=== PATIENT | male | born 1945 | race Caucasian/White ===

== ENCOUNTER 2018-01-22 01:57 | Outpatient (CLI) | payer MEDICARE, BC, SELFPAY ==
[2018-01-22 11:09] LABS: HGB 12.6 g/dL (13.5-17.5); Mean Corp. HGB Concentration 31.5 g/dL (32.0-36.0); Mean Corpuscular Hemoglobin 29.6 pg (27.0-33.0); Mean Corpuscular Volume 94.1 fL (80-95); Mean Platelet Volume 11.5 fL (8.0-11.0); Platelet Count 233 x1000/uL (130-400); RBC 4.25 m/cumm (4.50-6.00); RBC Distribution Width 15.8 % (11.8-14.1); White Blood Cell Count 8.52 k/cumm (4.4-10.8)
[2018-01-22 11:34] LABS: ALT 17 U/L (12-78); AST 23 U/L (15-37); Albumin 2.9 g/dL (3.4-5.0); Alkaline Phosphatase 53 U/L (46-116); Anion Gap 11.2 mmol/L (3-11); BUN 21 mg/dL (7-18); Bilirubin, Total 0.7 mg/dL (0.2-1.0); CO2 23.8 mmol/L (21.0-32.0); CREATININE 1.87 mg/dL (0.70-1.30); Calcium 8.7 mg/dL (8.5-10.1); Chloride 108 mmol/L (98-107); Cholesterol 116 mg/dL (50-200); Estimated GFR 35.77 (mL/min/1.73m2); Glucose 83 mg/dL (70-100); HDL Cholesterol 36 mg/dL (40-60); LDL CHOLESTEROL 61 mg/dL (<100); Potassium 4.4 mmol/L (3.5-5.1); Sodium 143 mmol/L (136-145); Total Protein 6.5 g/dL (6.4-8.2); Triglyceride 149 mg/dL (30-150)
[2018-01-22 12:16] LABS: Hemoglobin A1C 6.3 % (4.5-6.2)
== END 2018-01-22 02:17 ==
PROVIDERS: PCP Family Medicine; Visit Provider Family Medicine
DX: D64.9 Anemia, unspecified (principal); E11.9 Type 2 diabetes mellitus without complications; E87.6 Hypokalemia; I10 Essential (primary) hypertension; N28.9 Disorder of kidney and ureter, unspecified; Z13.220 Encounter for screening for lipoid disorders
CPT/HCPCS: 36415; 80053; 80061; 83721; 85027; 83036

== ENCOUNTER 2018-05-02 02:31 | Outpatient (CLI) | payer MEDICARE, BC, SELFPAY ==
[2018-05-02 11:41] LABS: HCT 41.1 % (40.0-50.0); HGB 13.6 g/dL (13.5-17.5); Mean Corp. HGB Concentration 33.1 g/dL (32.0-36.0); Mean Corpuscular Hemoglobin 31.5 pg (27.0-33.0); Mean Corpuscular Volume 95.1 fL (80-95); Platelet Count 214 x1000/uL (130-400); RBC 4.32 m/cumm (4.50-6.00); RBC Distribution Width 14.8 % (11.8-14.1); White Blood Cell Count 10.37 k/cumm (4.4-10.8)
[2018-05-02 12:16] LABS: Hemoglobin A1C 6.1 % (4.5-6.2)
[2018-05-02 12:22] LABS: ALT 39 U/L (12-78); AST 27 U/L (15-37); Alkaline Phosphatase 61 U/L (46-116); Anion Gap 9.7 mmol/L (3-11); BUN 23 mg/dL (7-18); Bilirubin, Total 0.5 mg/dL (0.2-1.0); CO2 26.3 mmol/L (21.0-32.0); Calcium 8.7 mg/dL (8.5-10.1); Chloride 106 mmol/L (98-107); Estimated GFR 37.27 (mL/min/1.73m2); Glucose 131 mg/dL (70-100); Potassium 4.3 mmol/L (3.5-5.1); Sodium 142 mmol/L (136-145); Total Protein 6.6 g/dL (6.4-8.2)
== END 2018-05-02 02:51 ==
PROVIDERS: PCP Family Medicine; Visit Provider Family Medicine
DX: E11.9 Type 2 diabetes mellitus without complications (principal); N18.9 Chronic kidney disease, unspecified
CPT/HCPCS: 36415; 80053; 85027; 83036

== ENCOUNTER 2018-10-15 01:55 | Outpatient (CLI) | payer MEDICARE, BC, SELFPAY ==
[2018-10-15 11:10] LABS: HCT 38.7 % (40.0-50.0); Mean Corp. HGB Concentration 33.6 g/dL (32.0-36.0); Mean Corpuscular Hemoglobin 32.4 pg (27.0-33.0); Mean Corpuscular Volume 96.5 fL (80-95); Mean Platelet Volume 10.7 fL (8.0-11.0); Platelet Count 243 x1000/uL (130-400); RBC 4.01 m/cumm (4.50-6.00); White Blood Cell Count 12.13 k/cumm (4.4-10.8)
[2018-10-15 11:33] LABS: ALT 33 U/L (12-78); AST 20 U/L (15-37); Albumin 2.9 g/dL (3.4-5.0); Alkaline Phosphatase 44 U/L (46-116); Anion Gap 12.8 mmol/L (3-11); BUN 33 mg/dL (7-18); Bilirubin, Total 0.5 mg/dL (0.2-1.0); CO2 23.2 mmol/L (21.0-32.0); CREATININE 1.92 mg/dL (0.70-1.30); Calcium 8.9 mg/dL (8.5-10.1); Chloride 107 mmol/L (98-107); Glucose 116 mg/dL (70-100); Potassium 4.5 mmol/L (3.5-5.1); Sodium 143 mmol/L (136-145); Total Protein 6.1 g/dL (6.4-8.2)
[2018-10-15 11:46] LABS: Calculated LDL 73; Cholesterol 132 mg/dL (50-200); HDL Cholesterol 37 mg/dL (40-60); Triglyceride 112 mg/dL (30-150)
[2018-10-15 12:12] LABS: Hemoglobin A1C 6.1 % (4.5-6.2)
== END 2018-10-15 02:15 ==
PROVIDERS: PCP Family Medicine; Visit Provider Family Medicine
DX: E11.9 Type 2 diabetes mellitus without complications (principal); N18.9 Chronic kidney disease, unspecified
CPT/HCPCS: 36415; 80053; 80061; 83721; 85027; 83036

== ENCOUNTER 2019-02-18 02:08 | Outpatient (CLI) | payer MEDICARE, BC, SELFPAY ==
[2019-02-18 10:40] LABS: Hemoglobin A1C 6.2 % (4.5-6.2)
[2019-02-18 10:45] LABS: ALT 23 U/L (16-63); AST 16 U/L (15-37); Alkaline Phosphatase 33 U/L (46-116); Anion Gap 8.9 mmol/L (3-11); BUN 39 mg/dL (7-18); Bilirubin, Total 0.5 mg/dL (0.2-1.0); CO2 27.1 mmol/L (21.0-32.0); CREATININE 2.03 mg/dL (0.70-1.30); Chloride 107 mmol/L (98-107); Estimated GFR 32.44 (mL/min/1.73m2); Glucose 137 mg/dL (70-100); Potassium 4.4 mmol/L (3.5-5.1); Sodium 143 mmol/L (136-145); Total Protein 6.4 g/dL (6.4-8.2)
== END 2019-02-18 02:28 ==
PROVIDERS: PCP Family Medicine; Visit Provider Family Medicine
DX: E11.9 Type 2 diabetes mellitus without complications (principal)
CPT/HCPCS: 36415; 80053; 83036

== ENCOUNTER → 2019-03-26 09:49 | Outpatient (BNVA) | payer MEDICARE, BC, SELFPAY | PROVIDERS: PCP Family Medicine; Referring Provider Family Medicine; Visit Provider Surgery | DX: L98.9 Disorder of the skin and subcutaneous tissue, unspecified (principal); R94.4 Abnormal results of kidney function studies | CPT/HCPCS: 99203; 99214 ==

== ENCOUNTER 2019-03-31 08:38 | Day surgery (SDC) | payer MEDICARE, BC, SELFPAY ==
[2019-03-31 09:00] VITALS: BP 173/63; PULSE 63; RESP 16; TEMP 36.9; O2SAT 99
[2019-03-31] MEDS: Lactated Ringers 1,000 ML 82 ML IV (09:30)
[2019-03-31] MEDS: Gabapentin 300 MG CAP PO (09:49)
[2019-03-31] MEDS: Acetaminophen 500 MG TAB 1000 MG PO (09:50)
[2019-03-31] MEDS: Bupivacaine 0.5% Pres-Free 30 ML VIAL (10:33)
--- NOTE | 2019-03-31 10:37 | SKI_PTH ---
PATIENT: GEORGIA ROSSI LOC: LM U#:[id number] AGE/SX: 74/M ROOM: RE03/31/[address]: Gloria Ashton : 1945 BED: DIS: 03/31/2019 SPEC #: [id number] RECD: 03/31/19 12:44 STATUS: LAURA REGoyo #: [id number] NICOLE: 03/31/19 10:[address]: Gloria Ashton DEPT: Surgical Specimen RECD BY: Carmen Vazquez ENTERED: 03/31/19 12:46 SP TYPE: LEMUEL JETER DR: Gautam Duran MD Tissues: 1 - SKIN BIOPSY(SHAVE/PUNCH) 2 - SKIN BIOPSY(SHAVE/PUNCH) 3 - SKIN BIOPSY(SHAVE/PUNCH) Procedures: SKIN LEVEL 4 Comments: [id number]
[2019-03-31] MEDS: Bacitracin 30 GM TUBE (10:54)
--- NOTE | 2019-03-31 10:59 | W.PM.DSUDISC ---
Discharge Plan Disposition Patient Disposition: HOME Condition: Good Discharge Details Reason For Visit: LESION ON PENIS Attending Provider: Gloria Ashton Primary Care Provider: Gautam Duran Home Meds and New Rx's Prescriptions: New tramadol 50 mg tablet 50 mg PO Q6H PRN (Reason: pain) Qty: 14 RF: 0 docusate sodium [Col-Rite] 100 mg capsule 100 mg PO BID Qty: 30 RF: 2 bacitracin zinc-polymyxin B 500-10,000 unit/gram ointment 1 applic TP QID Qty: 14 RF: 0 Continued triamcinolone acetonide 0.1 % cream 1 applic TP BID PRN (Reason: eczema) Qty: 60 RF: 2 flu vacc qs 2019-20 (6 mos up) 60 mcg (15 mcg x 4)/0.5 mL suspension 0.5 ml IM ONCE Qty: 1 RF: 0 furosemide [Lasix] 20 mg tablet 20 mg PO QAM Qty: 90 RF: 3 nystatin 100,000 unit/gram powder 1 applic TP BID Qty: 60 RF: 0 atorvastatin [Lipitor] 20 mg tablet 20 mg PO QPM Qty: 90 RF: 4 clopidogrel [Plavix] 75 mg tablet 75 mg PO DAILY Qty: 90 RF: 4 allopurinol 100 mg tablet 100 mg PO DAILY Qty: 90 RF: 4 trazodone 100 mg tablet 50 mg PO DAILY Qty: 45 RF: 1 Novolog Flexpen U-100 Insulin 100 unit/mL (3 mL) insulin pen See Rx Instructions .ROUTE .COMPLEX Qty: 15 RF: 11 fluoxetine 10 mg capsule 10 mg PO DAILY Qty: 30 RF: 5 metoprolol tartrate 50 mg tablet 50 mg PO TID Qty: 90 RF: 11 (DME) pen needle, diabetic [BD Ultra-Fine Sharon Pen Needle] 32 gauge x 5/32 needle 1 ea Miscellaneous Five times a day Qty: 500 RF: 4 (DME) Blood Glucose Test Strip 1 ea Miscellaneous QID 90 Days Qty: 400 RF: 4 (DME) lancets 26 gauge misc 1 ea Miscellaneous TID Qty: 300 RF: 4 Lantus Solostar U-100 Insulin 100 unit/mL (3 mL) insulin pen 36 unit subcut BID Qty: 45 RF: 5 pantoprazole [Protonix] 20 mg tablet,delayed release (DR/EC) 20 mg PO DAILY 90 Days Qty: 90 RF: 4 ferrous sulfate 325 MG tablet 325 mg PO DAILY RF: 0 Discharge Instructions Additional Instructions: Caring for Your Incision You will need to help care for your incision after surgery and certain medical procedures. To close an incision, your healthcare provider used stitches (sutures). Follow the tips on this sheet to help stop bleeding, speed healing, and prevent infection of your incision. Pain Control Use ice! Ice keeps the swelling down and swelling is what causes pain. Never apply ice directly to the skin. Wrap it in a towel or cloth. Apply ice 20 minutes on and 20 minutes off for pain control. Use as needed. Take tylenol 325 mg by mouth with food every 4 hours as needed for pain. Do not take tylenol if you have a history of heavy drinking , hepatits C or liver problems. Use narcotic pain medications for severe pain. These medications can make you very constipated. Types of incision closures ? Surgical stitches (sutures) are placed by sewing the edges of an incision together with surgical thread. Sutures are either absorbable or non-absorbable. Absorbable sutures break down in the body over time. Non-absorbable sutures need to be removed. ? Home care ? Always wash your hands before touching your incision. ? Keep the incision clean, dry, and out of water, keep the incision out of water. ? Do not to pick at the scabs. Scabs help protect the wound. ? You can take a shower in 24 hours and wash the incision with soap and water. Pat dry/don?t scrub. It?s OK to wash around the incision. But don?t spray water directly on it. ? Pat stitches dry if they get wet. Don't rub. ? Check the incision site daily for pain, redness, drainage, swelling, or separation of the incision edges. ? If there is a bandage (dressing) over the incision, change this every 24 hours as instructed by your provider. Using clean hands change the dressing as directed by your healthcare provider. Always wash your hands before changing your dressing. ? Make sure any clothing that touches the incision is loose-fitting. This will prevent rubbing. If the incision is on the head, keep your child from wearing caps or other head coverings. These may rub against the incision. ? Try to avoid from rough play, contact sports, or physical activities for two weeks. This can put you at risk of opening the incision. ? Make sure you avoid doing things that could cause dirt or sweat to get in or on the incision. As your incision heals, the skin may appear pink or red. It may also feel slightly bumpy or raised. This is called a healing ridge. Over time, the color should fade and the raised skin will become less noticeable. Care for specific closures : ? Sutures or hasmukh. Once you no longer need to keep these dry, clean the incision or wound daily, generally after the first 12-24 hours. because of where the incision is located, you need to change the dressing several times a day. Change the dressing if it becomes wet or soiled. First remove the bandage using clean hands. Then wash the area gently with soap and warm water. Use a wet cotton swab to loosen and remove any blood or crust that forms. After cleaning, put a thin layer of antibiotic ointment on- such as neosporin or bactitracin. Then put on a new bandage. Follow-up care Hasmukh or sutures generally need to be removed in 7-10 days. Be sure to return for suture or staple removal as directed. If dissolving stitches were used in your mouth, these will not need to be removed. They should fall out or dissolve on their own. If tape closures were used, remove them yourself when your healthcare provider tells you to if they have not fallen off on their own. When to seek medical care Call your healthcare provider right away if you have any of these: ? More pain, redness, swelling, bleeding, or foul-smelling discharge around the incision area ? Fever of 101?F (38.3?C) or higher, or as directed by your child's healthcare provider ? Shaking chills ? Vomiting or nausea that doesn?t go away ? Numbness, coldness, or tingling around the incision area, or changes in skin color ? Opening of the sutures or wound Stitches or hasmukh come apart or fall out or surgical tape falls off before 7 days, or as directed by your healthcare provider [facility] on Sunday to make appt w/ Dr. Ashton in 7-10 days. [phone] Stand Alone Forms: Rodriguez Clay (DSU) Activity:: change dressing when it becomes wet or soiled. Because of the location- it may need to be changed several times a day. Shower/Bathe:: 24 hours Diet:: As Tolerated Discharge Orders Discharge Orders: Discharge Order (Routine); Ordered 03/31/19 Ordered By: Gloria Ashton DS: Diagnosis Discharge Diagnosis (1) Penile lesion: Status: Acute
--- NOTE | 2019-03-31 11:12 | W.PM.OP ---
Date of service: 03/31/19 Time of Service: 11:13 Operative Note Operative Note DATE OF PROCEDURE: 03/31/19 PRE-OP DIAGNOSIS: penile lesion- possible carcinoma POST-OP DIAGNOSIS: same PROCEDURE: lesion excision SURGEON: Gloria Ashton ANESTHESIA: MAC ESTIMATED BLOOD LOSS: 3 PATHOLOGY: other Patient was transported to: same day Patient's condition: stable Procedure Description: dictate
[2019-03-31 11:27] VITALS: BP 127/66; PULSE 62; RESP 16; TEMP 36; O2SAT 96
--- NOTE | 2019-03-31 12:40 | ROE_ITS ---
DATE OF PROCEDURE: March 31, 2019 PREOPERATIVE DIAGNOSIS: Penile lesion of the penis, 1 cm, possible carcinoma. POSTOPERATIVE DIAGNOSIS: Same. PROCEDURE: Excision of lesion. SURGEON: Gloria Ashton D.O. ANESTHESIA: MAC ESTIMATED BLOOD LOSS: < 3 cc's CONDITION: The patient tolerated the procedure well without complication. HISTORY: Mr. Velez is a 74-year-old male seen at the request of his PCP regarding a penile lesion an d is here today for excision. The patient is in poor health status and would not tolerate any major surgery or surgical exploration. PROCEDURE: Emla cream was applied to the lesion in postop. When he comes back a dorsal penile block is done at the 2 and 10 o'clock positions using plain 0.25% Marcaine. The lesion was then infiltrat ed with [id number] cc's of plain 0.25% Marcaine. It is excised in total with about 2 mm margins and i s sent off to Pathology. Electrocautery was used to provide hemostasis. The incision is closed with #4-0 nylon in an interrupted fashion. Sterile compression dressing is applied. The patient tolerat ed the procedure well without complication and transferred to the recovery room in stable condition. He will follow-up with me in the office in a weeks' time. He was given instructions in wound care, activity and warning signs and a prescription for Tramadol and use Tylenol and ice. cc: Gautam Duran M.D.
== END 2019-03-31 12:37 | disposition home or self-care (01) ==
PROVIDERS: PCP Family Medicine; Visit Provider Surgery
PROC: (CPT 11621; principal; 2019-03-31 09:45)
DX: C60.9 Malignant neoplasm of penis, unspecified (principal); I50.9 Heart failure, unspecified; E11.22 Type 2 diabetes mellitus with diabetic chronic kidney disease; N18.9 Chronic kidney disease, unspecified
CPT/HCPCS: 11621; 88305

== ENCOUNTER 2019-04-10 01:24 | Outpatient (CLI) | payer MEDICARE, BC, SELFPAY ==
[2019-04-10 15:58] LABS: Anion Gap 11.5 mmol/L (3-11); BUN 26 mg/dL (7-18); CO2 24.5 mmol/L (21.0-32.0); CREATININE 2.02 mg/dL (0.70-1.30); Calcium 8.9 mg/dL (8.5-10.1); Chloride 106 mmol/L (98-107); Estimated GFR 32.54 (mL/min/1.73m2); Glucose 125 mg/dL (74-106); Potassium 4.4 mmol/L (3.5-5.1); Sodium 142 mmol/L (136-145)
== END 2019-04-10 01:44 ==
PROVIDERS: PCP Family Medicine; Visit Provider Family Medicine
DX: N28.9 Disorder of kidney and ureter, unspecified (principal); N48.9 Disorder of penis, unspecified
CPT/HCPCS: 36415; 80048

== ENCOUNTER 2019-05-01 02:08 | Outpatient (CLI) | payer MEDICARE, BC, SELFPAY ==
--- NOTE | 2019-05-01 13:02 | DI.US_ITS ---
EXAM: US SOFT TISS EXTREMITY/GROIN CLINICAL HISTORY: penile cancer. looking for enlarged lymph nodes,R59.1,GENERALIZED ENLARGED TECHNIQUE: Ultrasound performed using standard protocol. COMPARISON: Cardiac from 09/05/2017 FINDINGS: Ultrasound examination of the inguinal regions was performed. There are multiple visible lymph nodes , on the left the largest nodes measure about 28 millimeters in diameter and 33 millimeters in diamet er respectively. These are hyperechoic with poorly defined internal architecture and may be patholog ic. On the right, the largest nodes are about 35 millimeters in greatest diameter and about 27 millimeter s in greatest diameter. Again these have an abnormal internal architecture. This examination was reportedly obtained to evaluate the possibility of metastatic inguinal nodes and the findings as described are indeterminate but could represent metastatic disease. Correlation wit h CT recommended.
== END 2019-05-01 02:28 ==
PROVIDERS: PCP Family Medicine; Visit Provider Surgery
DX: C60.9 Malignant neoplasm of penis, unspecified (principal); R59.1 Generalized enlarged lymph nodes; Z87.891 Personal history of nicotine dependence
CPT/HCPCS: 76882

== ENCOUNTER 2019-05-19 00:55 | Outpatient (CLI) | payer MEDICARE, BC, SELFPAY ==
--- NOTE | 2019-05-18 16:04 | W.PM.HP.N ---
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 Risks: bleeding, infection,damage to vein/artery/nerve, need for more tissue. will be done under US guidance. (2) Smoker: Status: Acute (3) Anemia: Status: Acute (4) Cerebrovascular disease: Status: Acute (5) Chronic kidney disease, unspecified: Status: Acute (6) Sleep disturbances: Status: Acute (7) Essential hypertension: Status: Acute (8) Diabetes mellitus: Status: Acute (9) Acute coronary syndrome: Status: Active (10) Congestive heart failure: Status: Active (11) Peripheral arterial occlusive disease: Status: Active (12) Diverticular disease of colon: Status: Active History of Present Illness Consults Consult date: 05/19/19 Narrative: pt had a lesion at the base of the penis which did turnstile attendant to be a cancer. We did do a local incision only. Pt is not medically stable for any definative surgery- EF 20%, Cr runs around 2. we did the initial procedure under just local. He did heal up well from the excision. He did have an US done to look at lymph nodes- some of these were enlarged on the left. This may be reactive from recent sx or met dx, vs other. I do think he needs a bx, and we are planning on doing this today. Risk: bleeding/infection/scar/damage to great vessels, need for more tissue. He can't receive contrast for CT or MRI b/c of kidneys. He is a poor sx candidate for a complete LND or radical surgical procedure. I do'nt think he would tolerate any chemo, either. We will see if there is any tumor spread. If there is- than he will need a refer to oncology for consideration of treatment vs watchful waiting. again- he is a poor candidate for adjuvant chemo. we are doing left sided lymph node bx today no chest pain or SOB or URT illness. no changes in health status or meds and stable for procedure today. incision has healed up nicely. 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 Paternal Grandfather No problems noted. Maternal Grandmother No problems noted. Paternal Grandmother No problems noted. Social History Smoking/Tobacco Use Status: Former Tobacco Use Quit Date: 04/30/99 Alcohol Intake: former Drug use: Never Household members: spouse Do you need help understanding health information?: Rarely Pets and animals: Yes Pets and animals: cat(s) Sexually active: No Do you think of yourself as: straight/heterosexual Current gender identity: male What is your relationship status?: How often do you talk on the phone with friends or family?: once per week How often do you get together with friends or relatives?: decline to answer How often do you attend yazidi or muslim services?: decline to answer Do you belong to any clubs or organized social groups?: no Panel score (0-1 are the most socially isolated patients): 1 Duration: < 15 minutes/day Frequency: 1-2 times per week Marielos/Tenriism: Amish Special marielos needs: No Seatbelt use: always Helmet use: No Drive intox or ride w/intox commercial front load driver: No Do you feel safe at home: Yes Do you feel safe in your relationship?: Yes Meds Home Medications and Allergies Home Medications Medication Instructions Recorded Confirmed Type ferrous sulfate 325 mg PO DAILY 11/16/17 04/16/19 History triamcinolone acetonide 0.1 % 1 applic TP BID PRN #60 gm 04/24/18 04/16/19 Rx topical cream atorvastatin 20 mg tablet 20 mg PO QPM #90 tab 05/01/18 04/16/19 Rx clopidogrel 75 mg tablet 75 mg PO DAILY #90 tab-cap 05/17/18 04/16/19 Rx allopurinol 100 mg tablet 100 mg PO DAILY #90 tab-cap 05/29/18 04/16/19 Rx insulin aspart U-100 100 unit/mL See Rx Instructions .ROUTE 11/25/18 04/10/19 Rx (3 mL) subcutaneous pen .COMPLEX #15 syringe fluoxetine 10 mg capsule 10 mg PO DAILY #30 cap 11/27/18 04/16/19 Rx metoprolol tartrate 50 mg tablet 50 mg PO TID #90 tab 12/04/18 04/16/19 Rx pen needle, diabetic 32 gauge x #500 box 12/11/18 04/16/19 Rx 32 blood sugar diagnostic #400 strip 12/24/18 04/16/19 Rx lancets 26 gauge #300 ea 12/25/18 04/16/19 Rx insulin glargine 100 unit/mL (3 36 unit SUBCUT BID #45 ml 01/07/19 04/16/19 Rx mL) subcutaneous pen flu vacc qs 2019- (6 mos up) 60 0.5 ml IM ONCE #1 ml 02/24/19 03/31/19 Clinic mcg (15 mcg x 4)/0.5 mL IM susp furosemide 20 mg tablet 20 mg PO QAM #90 tab 02/24/19 04/16/19 Rx nystatin 100,000 unit/gram topical 1 applic TP BID #60 gm 02/24/19 04/16/19 Rx powder pantoprazole 20 mg tablet,delayed 20 mg PO DAILY 90 Days #90 tab-cap 02/26/19 04/16/19 Rx release tramadol 50 mg PO Q6H PRN #14 tab 03/31/19 04/16/19 Rx trazodone 100 mg tablet 50 mg PO DAILY #45 tab 05/19/19 Rx Allergies Allergy/AdvReac Type Severity Reaction Status Date / Time No Known Allergies Allergy Unverified 04/16/19 13:05 Exam Const General: cooperative, healthy appearing, comfortable, no acute distress, well developed and well groomed Nutritional Appearance: average body habitus and well nourished Orientation: alert, awake and oriented x3 HENMT Head: normal to inspection, normocephalic and atraumatic Ears: hearing grossly normal bilaterally and external ears normal General nose exam: external nose normal Face and sinus: normal facial exam and sinuses nontender Mouth: oral mucosae normal, lip normal, tongue normal and moist mucous membranes Teeth and gingiva: dentition normal Eyes General: appearance normal, both eyes and all related structures Conjunctivae: conjunctivae normal Sclera: sclerae normal Pupils: PERRL Neck Neck: normal visual inspection and full ROM Chest Chest: normal inspection of the chest Resp Effort & Inspection: normal respiratory effort, able to speak in complete sentences, no cough, no nasal flaring, not tachypneic and no use of accessory muscles Auscultation: clear to auscultation bilaterally, no rales, no rhonchi and no wheezes Cardio Jugular venous pressure: no JVD Rate: regular rate Rhythm: regular rhythm GI Inspection: normal to inspection, no edema and non-distended Palpation: soft, no masses, nontender and No ascites Auscultation: normal bowel sounds Skin General skin exam: no rashes or lesions noted Trauma: no lacerations or abrasions Neuro General: alert, oriented x3, oriented, gait normal, moves all extremities, no focal motor deficits and CN's II-XI intact bilaterally Cognition: normal cognition Speech: speech normal Gait: normal gait Motor: muscle tone normal throughout Extrem General: normal to inspection Other: b/i LE amputee Psych Appearance: grossly normal and well kempt Mental Status: mental status grossly normal Speech and Movement: speech and movement normal Affect: normal affect
--- NOTE | 2019-05-19 12:01 | DI.US_ITS ---
EXAM: US NEEDLE LOCAL OTHER WO RAD CLINICAL HISTORY: SQUAMOUS CELL CA WITH HIGH GRADE DYSPLASIA OF GROIN/PELVIS WITH ENLARGED TECHNIQUE: Ultrasound performed using standard protocol. COMPARISON: US SOFT TISS EXTREMITY/GROIN from 05/01/2019 FINDINGS: Ultrasound guidance was provided for biopsy performed by Dr. Ashton in the left inguinal region. Pl ease see Dr. Ashton's procedure note.
--- NOTE | 2019-05-19 13:10 | W.PM.DSUDISC ---
Discharge Plan Disposition Patient Disposition: HOME Condition: Good Discharge Details Reason For Visit: need kori lift, lymph node bx Attending Provider: Gloria Ashton Primary Care Provider: Gautam Duran Home Meds and New Rx's Prescriptions: No Action triamcinolone acetonide 0.1 % cream 1 applic TP BID PRN (Reason: eczema) Qty: 60 RF: 2 flu vacc qs 2019-20 (6 mos up) 60 mcg (15 mcg x 4)/0.5 mL suspension 0.5 ml IM ONCE Qty: 1 RF: 0 furosemide [Lasix] 20 mg tablet 20 mg PO QAM Qty: 90 RF: 3 nystatin 100,000 unit/gram powder 1 applic TP BID Qty: 60 RF: 0 atorvastatin [Lipitor] 20 mg tablet 20 mg PO QPM Qty: 90 RF: 4 clopidogrel [Plavix] 75 mg tablet 75 mg PO DAILY Qty: 90 RF: 4 allopurinol 100 mg tablet 100 mg PO DAILY Qty: 90 RF: 4 Novolog Flexpen U-100 Insulin 100 unit/mL (3 mL) insulin pen See Rx Instructions .ROUTE .COMPLEX Qty: 15 RF: 11 fluoxetine 10 mg capsule 10 mg PO DAILY Qty: 30 RF: 5 metoprolol tartrate 50 mg tablet 50 mg PO TID Qty: 90 RF: 11 (DME) pen needle, diabetic [BD Ultra-Fine Sharon Pen Needle] 32 gauge x 5/32 needle 1 ea Miscellaneous Five times a day Qty: 500 RF: 4 (DME) Blood Glucose Test Strip 1 ea Miscellaneous QID 90 Days Qty: 400 RF: 4 (DME) lancets 26 gauge misc 1 ea Miscellaneous TID Qty: 300 RF: 4 Lantus Solostar U-100 Insulin 100 unit/mL (3 mL) insulin pen 36 unit subcut BID Qty: 45 RF: 5 pantoprazole [Protonix] 20 mg tablet,delayed release (DR/EC) 20 mg PO DAILY 90 Days Qty: 90 RF: 4 trazodone 100 mg tablet 50 mg PO DAILY Qty: 45 RF: 3 ferrous sulfate 325 MG tablet 325 mg PO DAILY RF: 0 tramadol 50 mg tablet 50 mg PO Q6H PRN (Reason: pain) Qty: 14 RF: 0 Discharge Instructions Additional Instructions: -keep ice pack on for 24 hrs -tylenol as needed for pain -remove dressing in am -Surgery office will call to schedule PET scan -shower in 24 hrs -no heavy lifting x 24 hrs go to ER if any heavy bleeding Activity:: Activity as Tolerated Shower/Bathe:: 24 hours DS: Diagnosis Discharge Diagnosis (1) Primary squamous cell carcinoma of penis: Status: Acute (2) Smoker: Status: Acute (3) Anemia: Status: Acute (4) Cerebrovascular disease: Status: Acute (5) Chronic kidney disease, unspecified: Status: Acute (6) Sleep disturbances: Status: Acute (7) Essential hypertension: Status: Acute (8) Diabetes mellitus: Status: Acute (9) Acute coronary syndrome: Status: Active (10) Congestive heart failure: Status: Active (11) Peripheral arterial occlusive disease: Status: Active (12) Diverticular disease of colon: Status: Active
--- NOTE | 2019-05-19 13:37 | W.PM.OP ---
Date of service: 05/19/19 Time of Service: 13:38 Operative Note Operative Note DATE OF PROCEDURE: 05/19/19 PRE-OP DIAGNOSIS: Primary squamous cell cancer of the penis/enlarged lymph nodes POST-OP DIAGNOSIS: same PROCEDURE: Ultrasound was attempted but lymph node biopsy. We were unable to get any tissue today. SURGEON: Gloria Ashton ANESTHESIA: local ESTIMATED BLOOD LOSS: 3 PATHOLOGY: none sent Patient was transported to: other (d/c'ed home ) Patient's condition: stable Procedure Description: dictated
--- NOTE | 2019-05-19 15:06 | ROE_ITS ---
DATE OF PROCEDURE: May 19, 2019 PREOPERATIVE DIAGNOSIS: Squamous cell cancer of the penis with enlarged lymph nodes in the left groi n. POSTOPERATIVE DIAGNOSIS: Same. PROCEDURE: Attempted left inguinal lymph biopsy. SURGEON: Gloria Ashton D.O. ANESTHESIA: Local. ESTIMATED BLOOD LOSS: 3 cc's CONDITION: The patient tolerated the procedure well without complication. HISTORY: Mr. Velez is a 74-year-old male who had a small lesion at the base of his penis that was th ought to be a low-grade chronic infection. The lesion was excised and it did returned goods repairer to be a carcin servando. He is not a candidate for any major surgical procedures. He did have an ultrasound done for ly mph nodes, which did show some enlarged lymph nodes on the left side and he is here today for biopsy. Informed consent was obtained explaining risks and benefits of the procedure, including but not walter ited to bleeding, infection, scarring and need for more tissue and damage to vessels and nerves. PROCEDURE: The area is localized with ultrasound. It is prepped and draped in the usual sterile fas hion using a Betadine scrub solution. 10 cc's of 1% Lidocaine is used to anesthetize the skin and a small 25 gauge needle is used to localize the lymph node with the aid of ultrasound. A small knick i s made in the skin with a #11 blade. Christian-cut core needle biopsy is passed into the lymph nodes. Unf ortunately multiple passes at two different nodes are made and for some reason we weren't able to get any adequate tissue today. The procedure was abandoned. Pressure was held; there was no bleeding n oted. We will see if we can get the patient in for a PET scan for evaluation of the nodes. cc: Gautam Duran M.D.
== END 2019-05-19 01:15 | disposition home or self-care (01) ==
PROVIDERS: PCP Family Medicine; Visit Provider Surgery
DX: C60.9 Malignant neoplasm of penis, unspecified (principal); F17.210 Nicotine dependence, cigarettes, uncomplicated; D64.9 Anemia, unspecified; N18.9 Chronic kidney disease, unspecified; I12.9 Hypertensive chronic kidney disease with stage 1 through stage 4 chronic kidney disease, or unspecified chronic kidney disease; E11.9 Type 2 diabetes mellitus without complications; I50.9 Heart failure, unspecified; I25.10 Atherosclerotic heart disease of native coronary artery without angina pectoris
CPT/HCPCS: 38505; 76942; NC

== ENCOUNTER 2019-10-02 03:18 | Outpatient (CLI) | payer MEDICARE, BC, SELFPAY ==
[2019-10-02 08:46] LABS: Abs Immature Grans 0.34 k/cumm (0.0-0.09); Absolute Basophil Count 0.02 k/cumm (0.0-0.2); Absolute Eosinophil Count 0.02 k/cumm (0.0-0.7); Absolute Neutrophil Count 14.38 k/cumm (1.2-6.7); Basophils % 0.1; Eosinophils % 0.1; HCT 43.3 % (40.0-50.0); HGB 14.3 g/dL (13.5-17.5); Immature Grans % 1.9 %; Lymphocytes % 9.6; Mean Corpuscular Hemoglobin 31.1 pg (27.0-33.0); Mean Corpuscular Volume 94.1 fL (80-95); Mean Platelet Volume 10.9 fL (8.0-11.0); Monocytes % 7.1; Neutrophils % 81.2; Platelet Count 298 x1000/uL (130-400); RBC Distribution Width 14.9 % (11.8-14.1); White Blood Cell Count 17.71 k/cumm (4.4-10.8)
[2019-10-02 08:49] LABS: Absolute Monocyte Count 1.26 k/cumm (0.11-0.7)
[2019-10-02 09:02] LABS: ALT 21 U/L (16-63); AST 18 U/L (15-37); Albumin 3.3 g/dL (3.4-5.0); Alkaline Phosphatase 20 U/L (46-116); Anion Gap 6.2 mmol/L (3-11); BUN 39 mg/dL (7-18); Bilirubin, Total 0.6 mg/dL (0.2-1.0); CO2 24.8 mmol/L (21.0-32.0); CREATININE 1.92 mg/dL (0.70-1.30); Calcium 8.7 mg/dL (8.5-10.1); Chloride 106 mmol/L (98-107); Glucose 76 mg/dL (74-106); Potassium 4.8 mmol/L (3.5-5.1); Sodium 137 mmol/L (136-145); Total Protein 6.7 g/dL (6.4-8.2)
== END 2019-10-02 03:38 ==
PROVIDERS: PCP Family Medicine; Visit Provider Family Medicine
DX: E11.9 Type 2 diabetes mellitus without complications (principal); N18.9 Chronic kidney disease, unspecified
CPT/HCPCS: 36415; 80053; 85025

== ENCOUNTER 2020-06-04 02:18 | Outpatient (CLI) | payer MEDICARE, BC, SELFPAY ==
--- NOTE | 2020-06-04 13:12 | DI.RAD_ITS ---
EXAM: XR FINGER LT INDEX EXAM DATE/TIME: CLINICAL HISTORY: ? osteomyelitis - already lost r index,INFECTION,B99.9. TECHNIQUE: 2D digital imaging was performed. COMPARISON: None. FINDINGS: BONES: No acute fracture is present. No radiographic findings to suggest osteomyelitis. JOINTS: No dislocation is present. Degenerative changes are seen at the DIP joint of the left finger . SOFT TISSUE: Vascular calcifications are seen in the soft tissues. IMPRESSION: No radiographic evidence to suggest acute osteomyelitis. If there is continued concern, MRI or 3 pha se bone scan should be considered. DATA REPOSITORY: RADIATION DOSE DELIVERED:
== END 2020-06-04 02:19 ==
LOC: DI 02:18
PROVIDERS: PCP Family Medicine; Visit Provider Family Medicine
DX: L98.498 Non-pressure chronic ulcer of skin of other sites with other specified severity (principal); Z87.39 Personal history of other diseases of the musculoskeletal system and connective tissue
CPT/HCPCS: 73140

== ENCOUNTER 2020-06-04 12:47 | Outpatient (CLI) | payer MEDICARE, BC, SELFPAY ==
[2020-06-04 13:13] LABS: Abs Immature Grans 0.14 10^3/uL (0.0-0.06); Absolute Basophil Count 0.05 10^3/uL (0.0-0.2); Absolute Eosinophil Count 0.24 10^3/uL (0.0-0.7); Absolute Lymphocyte Count 1.58 10^3/uL (1.2-3.4); Absolute Monocyte Count 0.85 10^3/uL (0.1-0.8); Basophils % 0.4; Eosinophils % 1.8; HCT 38.7 % (40.0-50.0); HGB 12.9 g/dL (13.5-17.5); Immature Grans % 1.1; Lymphocytes % 11.9; MCH 31.2 pg (27.0-33.0); MCHC 33.3 % (32.0-36.0); MCV 93.5 fL (80-95); Monocytes % 6.4; Neutrophils % 78.4; Nucleated RBC 0 %; Platelet Count 252 10^3/uL (130-400); RBC 4.14 10^6/uL (4.36-5.78); RDW 13.8 % (11.8-14.1); RDW-SD 46.5 fL; WBC 13.29 10^3/uL (4.4-10.8)
[2020-06-04 13:20] LABS: Absolute Neutrophil Count 10.42 10^3/uL (1.2-6.7)
[2020-06-04 13:42] LABS: C-Reactive Protein 1.17 mg/dL (0.0-0.3)
[2020-06-04 20:35] LABS: ESR 42 mm/hr (<or=20)
== END 2020-06-04 12:48 | disposition home or self-care (01) ==
LOC: LBO 12:48
PROVIDERS: PCP Family Medicine; Visit Provider Family Medicine
DX: L98.498 Non-pressure chronic ulcer of skin of other sites with other specified severity (principal); L03.012 Cellulitis of left finger; I10 Essential (primary) hypertension
CPT/HCPCS: 36415; 85652; 73140; 85025; 86140

== ENCOUNTER 2020-06-11 10:36 | Outpatient (REF) | payer MEDICARE, BC, SELFPAY ==
[2020-06-11 11:55] LABS: C Diff PCR Positive (Negative)
== END 2020-06-11 10:37 | disposition home or self-care (01) ==
LOC: LBN 10:36
PROVIDERS: PCP Family Medicine; Visit Provider Family Medicine
DX: R19.7 Diarrhea, unspecified (principal)
CPT/HCPCS: 87329; 87493

== ENCOUNTER 2020-07-20 15:51 | Outpatient (REF) | payer MEDICARE, BC, SELFPAY ==
[2020-07-20 16:51] LABS: Absolute Basophil Count 0.05 10^3/uL (0.0-0.2); Absolute Eosinophil Count 0.27 10^3/uL (0.0-0.7); Absolute Monocyte Count 0.76 10^3/uL (0.1-0.8); Basophils % 0.4; HCT 38.6 % (40.0-50.0); HGB 12.6 g/dL (13.5-17.5); Immature Grans % 0.7; Lymphocytes % 8.2; MCH 31.4 pg (27.0-33.0); MCHC 32.6 % (32.0-36.0); MCV 96.3 fL (80-95); MPV 10.5 fL (8.0-11.0); Monocytes % 5.7; Nucleated RBC 0 %; Platelet Count 240 10^3/uL (130-400); RBC 4.01 10^6/uL (4.36-5.78); RDW-SD 53.1 fL; WBC 13.37 10^3/uL (4.4-10.8)
[2020-07-20 17:06] LABS: ALT 17 U/L (16-63); AST 18 U/L (15-37); Albumin 2.8 g/dL (3.4-5.0); Alkaline Phosphatase 37 U/L (46-116); Anion Gap 13.1 mmol/L (3-11); BUN 23 mg/dL (7-18); Bilirubin, Total 0.4 mg/dL (0.2-1.0); CO2 22.9 mmol/L (21.0-32.0); CREATININE 1.6 mg/dL (0.70-1.30); Calcium 8.8 mg/dL (8.5-10.1); Chloride 104 mmol/L (98-107); Estimated GFR 42.46 (mL/min/1.73m2); Glucose 207 mg/dL (74-106); Potassium 3.7 mmol/L (3.5-5.1); Sodium 140 mmol/L (136-145); Total Protein 6.3 g/dL (6.4-8.2)
[2020-07-20 17:12] LABS: Hemoglobin A1C 5.4 % (<5.7)
== END 2020-07-20 15:52 | disposition home or self-care (01) ==
LOC: LBN 15:51
PROVIDERS: PCP Family Medicine; Visit Provider Family Medicine
DX: I10 Essential (primary) hypertension (principal); E11.9 Type 2 diabetes mellitus without complications; L03.012 Cellulitis of left finger
CPT/HCPCS: 80053; 83036; 85025

== ENCOUNTER 2020-07-27 11:23 | Outpatient (REF) | payer MEDICARE, BC, SELFPAY ==
[2020-07-27 17:21] LABS: C Diff PCR Positive (Negative)
== END 2020-07-27 11:24 | disposition home or self-care (01) ==
LOC: LBN 11:23
PROVIDERS: PCP Family Medicine; Visit Provider Family Medicine
DX: R19.7 Diarrhea, unspecified (principal)
CPT/HCPCS: 87493